=== PATIENT | male | born 1985 | race Two or more races ===

== ENCOUNTER 2018-03-03 08:40 | Emergency (ER) | payer SELFPAY ==
[2018-03-03] MEDS ORDERED: NORMAL SALINE 1000 ML 1,000 ML IV ONE (09:18)
[2018-03-03] MEDS ORDERED: FENTANYL CITRATE INJ/PF 100 MCG/2 ML AMPUL IV ONE (09:18)
[2018-03-03] MEDS ORDERED: KETOROLAC TROMETHAMINE INJ/PF 30 MG/1 ML SDV IV ONE (09:18)
[2018-03-03] MEDS ORDERED: ONDANSETRON HCL INJ/PF 4 MG/2 ML SDV IV ONE ×2 (09:18→10:16)
--- NOTE | 2018-03-03 09:31 | ER Document Report ---
ED Medical Screen (RME) - General Chief Complaint: Abdominal Pain Stated Complaint: ABDOMINAL PAIN Time Seen by Provider: 03/03/18 09:18 Notes: 33 years old male presents today with severe abdominal pain since this morning with nausea and vomiting no diarrhea. No fever chills or other constitutional symptoms. TRAVEL OUTSIDE OF THE [place] 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 Renal/ Medical History: Denies: Hx Peritoneal Dialysis GI Medical History: Reports: Hx Gastroesophageal Reflux Disease Psychiatric Medical History: Reports: Hx Depression Traumatic Medical History: Reports: Hx Traumatic Brain Injury - Immunizations Immunizations up to date: Yes Hx Diphtheria, Pertussis, Tetanus Vaccination: Yes - 2010 Physical Exam - Vital signs Vitals: Temp Pulse Resp BP Pulse Ox 98.5 F 61 14 145/107 H 100 03/03/18 08:47 03/03/18 08:47 03/03/18 08:47 03/03/18 08:47 03/03/18 08:47 Course - Vital Signs Vital signs: Temp Pulse Resp BP Pulse Ox 98.5 F 61 14 145/107 H 100 03/03/18 08:47 03/03/18 08:47 03/03/18 08:47 03/03/18 08:47 03/03/18 08:47
[2018-03-03 09:44] LABS: ABSOLUTE LYMPHOCYTES (AUTO) 1.2 10^3/uL (0.5-4.7); ABSOLUTE MONOCYTES (AUTO) 0.6 10^3/uL (0.1-1.4); ABSOLUTE NEUT (AUTO) 12.6 10^3/uL (1.7-8.2); BASOPHILS % (AUTO) 0.3 % (0-2); EOSINOPHILS % (AUTO) 0.3 % (0-6); HEMATOCRIT 44.1 % (37.9-51.0); HEMOGLOBIN 15.1 g/dL (13.5-17.0); LYMPHOCYTES % (AUTO) 8.5 % (13-45); MEAN CORPUSCULAR HEMOGLOBIN 29.9 pg (27.0-33.4); MEAN CORPUSCULAR HGB CONC 34.3 g/dL (32.0-36.0); MEAN CORPUSCULAR VOLUME 87 fl (80-97); MONOCYTES % (AUTO) 3.9 % (3-13); PLATELET COUNT 344 10^3/uL (150-450); RED BLOOD COUNT 5.06 10^6/uL (4.35-5.55); RED CELL DISTRIBUTION WIDTH 13.4 % (11.5-14.0); TOTAL CELLS COUNTED % (AUTO) 100 %; WHITE BLOOD COUNT 14.5 10^3/uL (4.0-10.5)
[2018-03-03 10:03] LABS: ALANINE AMINOTRANSFERASE 17 U/L (21-72); ALKALINE PHOSPHATASE 71 U/L (38-126); ANION GAP 15 (5-19); ASPARTATE AMINO TRANSFERASE 21 U/L (17-59); BILIRUBIN,DIRECT 0.2 mg/dL (0.0-0.4); BILIRUBIN,TOTAL 1.4 mg/dL (0.2-1.3); BLOOD UREA NITROGEN 16 mg/dL (7-20); CALCIUM 9.8 mg/dL (8.4-10.2); CARBON DIOXIDE 25 mmol/L (22-30); CHLORIDE 102 mmol/L (98-107); GLUCOSE 114 mg/dL (75-110); LIPASE 112.8 U/L (23-300); POTASSIUM 3.7 mmol/L (3.6-5.0); TOTAL PROTEIN 8.7 g/dL (6.3-8.2)
[2018-03-03] MEDS ORDERED: HYDROMORPHONE HCL INJ/PF 2 MG/ML AMPULE IV ONE (10:17)
--- NOTE | 2018-03-03 10:18 | ER Document Report ---
ED General - General Chief Complaint: Abdominal Pain Stated Complaint: ABDOMINAL PAIN Time Seen by Provider: 03/03/18 09:18 Notes: Patient is a 33-year-old male that presents to the emergency department for chief complaints of generalized abdominal pain. The patient states the pain is been going on for approximately 2 days, and has progressively gotten worse over that period of time, he rates the pain as an 8 out of 10 at this time as a aching and occasionally sharp sensation, seems to be worse in the right lower quadrant. He admits to having dysuria as well, no history of kidney stones. He also states he has been having nausea, vomiting and diarrhea over the last 2 days as well. No sick contacts that he is aware of. Denies fevers, chills, night sweats, chest pain, shortness of breath or difficulty breathing. TRAVEL OUTSIDE OF THE [place] 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 Denies recent illness. EENT: Denies eye, ear, throat, or mouth pain or symptoms. Denies nasal or sinus congestion. CARDIOVASCULAR: Denies chest pain. RESPIRATORY: Denies cough, cold, or chest congestion. Denies shortness of breath, difficulty breathing, or wheezing. GASTROINTESTINAL: Positive for abdominal pain, nausea, vomiting and diarrhea denies abdominal pain. GENITOURINARY: Positive for dysuria denies difficulty urinating, painful urination, frequency, or blood in urine. MUSCULOSKELETAL: Denies neck or back pain or joint pain or swelling. SKIN: Denies rash or skin lesions. HEMATOLOGIC : Denies easy bruising or bleeding. LYMPHATIC: Denies swollen, enlarged glands. NEUROLOGICAL: Denies altered mental status or loss of consciousness. Denies headache. Denies weakness or paralysis or loss of use of either side. Denies problems with gait or speech. Denies sensory or motor loss. PSYCHIATRIC: Denies anxiety or stress or depression. ALL OTHER SYSTEMS REVIEWED AND NEGATIVE. Physical Exam - Vital signs Vitals: Temp Pulse Resp BP Pulse Ox 98.5 F 61 14 145/107 H 100 03/03/18 08:46 03/03/18 08:46 03/03/18 08:46 03/03/18 08:46 03/03/18 08:46 - Notes Notes: PHYSICAL EXAMINATION: GENERAL: Uncomfortable, well-nourished and appears to be in pain. HEAD: Atraumatic, normocephalic. EYES: Pupils equal round and reactive to light, extraocular movements intact, sclera anicteric, conjunctiva are normal. ENT: nares patent, oropharynx clear without exudates. Moist mucous membranes. NECK: Normal range of motion, supple without lymphadenopathy LUNGS: Breath sounds clear to auscultation bilaterally and equal. No wheezes rales or rhonchi. HEART: Regular rate and rhythm without murmurs ABDOMEN: Soft, diffusely tender, worse in the right lower quadrant, normoactive bowel sounds. No rigidity guarding, no rebound. No masses appreciated. EXTREMITIES: Normal range of motion, no pitting or edema. No cyanosis. NEUROLOGICAL: No focal neurological deficits. Moves all extremities spontaneously and on command. PSYCH: Normal mood, normal affect. SKIN: Warm, Dry, normal turgor, no rashes or lesions noted. Course - Re-evaluation Re-evalutation: 03/03/18 10:29 Patient seen and examined, vital signs reviewed, patient did appear comfortable on exam, did have particularly tender right lower quadrant, obtain blood work, urinalysis, CT imaging of the abdomen and pelvis, patient treated with IV fluids , analgesics, and antiemetics. Will reevaluate, and discuss results when available. 03/03/18 14:07 Patient reexamined after imaging resulted, and CT demonstrated a nonobstructing renal calculus, otherwise negative, patient was improved after medications, still complaining of cramping, patient dosed with IM Bentyl, will discharge the patient home, with oral Bentyl, and Zofran, and have him follow up with primary care. Patient agreeable to this plan of care, is advised if the symptoms worsen in any way to immediately return to the emergency department. - Vital Signs Vital signs: Temp Pulse Resp BP Pulse Ox 98.6 F 61 14 127/76 H 97 03/03/18 14:27 03/03/18 14:27 03/03/18 08:47 03/03/18 14:27 03/03/18 14:27 - Laboratory Result Diagrams: 03/03/18 09:32 03/03/18 09:32 Laboratory results interpreted by me: 03/03/18 03/03/18 03/03/18 09:32 09:32 12:25 WBC 14.5 H Seg Neutrophils % 87.0 H Lymphocytes % 8.5 L Absolute Neutrophils 12.6 H Glucose 114 H Total Bilirubin 1.4 H ALT 17 L Total Protein 8.7 H Urine Ketones 20 H Urine Blood SMALL H Discharge - Discharge Condition: Good Disposition: HOME, SELF-CARE Instructions: Abdominal Pain ([facility]), Antispasmodics ([facility]) Additional Instructions: Please take medications as prescribed, please continue to maintain hydration by drinking sports drinks, or water, take antinausea medication as needed, please follow-up with your primary care physician, please return to the emergency department if your symptoms worsen in any way. Prescriptions: Dicyclomine HCl [Bentyl 20 mg Tablet] 20 mg PO QID PRN #20 tablet PRN Reason: Abdominal Cramping Ondansetron [Zofran Odt 4 mg Tablet] 1 tab PO Q4H PRN #15 tab.rapdis PRN Reason: For Nausea/Vomiting Referrals: [facility] [Provider Group] - Follow up as needed
[2018-03-03 13:10] LABS: AMORPHOUS SEDIMENT,URINE TRACE /HPF; APPEARANCE,URINE CLOUDY; BILIRUBIN,URINE NEGATIVE (NEGATIVE); COLOR,URINE YELLOW; GLUCOSE, URINE NEGATIVE (NEGATIVE); KETONES,URINE 20 mg/dL (NEGATIVE); LEUKOCYTE ESTERASE,URINE NEGATIVE (NEGATIVE); NITRITE,URINE NEGATIVE (NEGATIVE); PROTEIN,URINE NEGATIVE (NEGATIVE); URINE SPECIFIC GRAVITY 1.016; UROBILINOGEN,URINE NEGATIVE mg/dL (<2.0)
--- NOTE | 2018-03-03 13:25 | RADIOLOGY REPORT (SQ) ---
EXAM DESCRIPTION: CT ABD/PELVIS WITH IV ORAL COMPLETED DATE/TIME: 03/03/2018 1:11 pm REASON FOR STUDY: rlq abdominal pain COMPARISON: 16. TECHNIQUE: CT scan of the abdomen and pelvis performed using helical scanning technique with dynamic intravenous contrast injection. No oral contrast. Images reviewed with lung, soft tissue, and bone windows. Reconstructed coronal and sagittal MPR images reviewed. Delayed images for evaluation of the urinary system also acquired. All images stored on PACS. All CT scanners at this facility use dose modulation, iterative reconstruction, and/or weight based d osing when appropriate to reduce radiation dose to as low as reasonably achievable (ALARA). [facility]: Dose Right [facility]: CareDose [facility]: Dose Right [facility]: Teradose 4D [facility]: [employer] CONTRAST TYPE AND DOSE: contrast/concentration: Isovue 350.00 mg/ml; Total Contrast Delivered: 84.0 ml; Total Saline Delivered: 50.5 ml RENAL FUNCTION: BUN 16 creatinine 0.94. RADIATION DOSE: CT Rad equipment meets quality standard of care and radiation dose reduction techniq ues were employed. CTDIvol: 5.4 - 7.0 mGy. DLP: 670 mGy-cm.. LIMITATIONS: None. FINDINGS: LOWER CHEST: No significant findings. No nodules or infiltrates. LIVER: Normal size. No masses. No dilated ducts. SPLEEN: Normal size. No focal lesions. PANCREAS: No masses. No significant calcifications. No adjacent inflammation or peripancreatic fluid collections. Pancreatic duct not dilated. GALLBLADDER: No identified stones by CT criteria. No inflammatory changes to suggest cholecystitis. ADRENAL GLANDS: No significant masses or asymmetry. RIGHT KIDNEY AND URETER: No solid masses. No significant calcifications. No hydronephrosis or hyd roureter. LEFT KIDNEY AND URETER: No solid masses. 6 mm lower pole calyceal calculus. No hydronephrosis or hydroureter. AORTA AND VESSELS: No aneurysm. No dissection. Renal arteries, SMA, celiac without stenosis. RETROPERITONEUM: No retroperitoneal adenopathy, hemorrhage or masses. BOWEL AND PERITONEAL CAVITY: No masses or inflammatory changes. No free fluid or peritoneal masses. APPENDIX: Normal. PELVIS: No mass. No free fluid. Normal bladder. ABDOMINAL WALL: No masses. No hernias. BONES: No significant or acute findings. OTHER: No other significant finding. IMPRESSION: 1. 6 MM NONOBSTRUCTING CALYCEAL CALCULUS IN THE LOWER POLE OF THE LEFT KIDNEY. 2. NO OTHER SIGNIFICANT OR ACUTE FINDING IN THE ABDOMEN OR PELVIS ON CT SCAN WITH IV CONTRAST. [place] L APPENDIX. TECHNICAL DOCUMENTATION: JOB ID: [id number] Quality ID # [id number]: Final reports with documentation of one or more dose reduction techniques (e.g., Au tomated exposure control, adjustment of the mA and/or kV according to patient size, use of iterative reconstruction technique) 2010 [employer]- All Rights Reserved Reading location - IP/workstation name: [email or web address]
[2018-03-03] MEDS ORDERED: DICYCLOMINE HCL INJ 20 MG/2 ML AMPULE IM STA (13:41)
[2018-03-03 14:30] VITALS: BP 127/76
== END 2018-03-03 14:44 | disposition home or self-care (01) ==
LOC: ER 08:40
DX: K52.9 Noninfective gastroenteritis and colitis, unspecified (principal); N20.0 Calculus of kidney; R10.84 Generalized abdominal pain; R30.0 Dysuria; R11.2 Nausea with vomiting, unspecified
CPT/HCPCS: 96376; 99284; 96372; 96361; 96374; 96375; 36415; 83690; 85025; 80053; 81001; 74177; J0500; J3010; J1885; J1170; J2405; J7030

== ENCOUNTER 2018-04-05 03:18 | Emergency (ER) | payer SELFPAY ==
[2018-04-05] MEDS ORDERED: PROMETHAZINE HCL INJ 25 MG/1 ML VIAL IV ONE (04:29)
[2018-04-05] MEDS ORDERED: HYDROMORPHONE HCL INJ/PF 2 MG/ML AMPULE IV ONE ×2 (04:29→08:20)
--- NOTE | 2018-04-05 04:31 | ER Document Report ---
Doctor's Note Notes: 04/05/18 04:30 I performed a quick triage evaluation the patient. Patient is a 33-year-old male who presents with complaint of vomiting and abdominal pain. Patient says the pain is diffuse across his abdomen into his back. He says he feels as if he has a kidney stone urinary says he is never had a kidney stone before. He was seen here March 03 of this year. At that time a CT scan which showed an intrarenal stone but no intraureteral stone or obstruction. He denies any fevers. Some nausea. Some vomiting. No diarrhea. No blood in his stool. No blood in his emesis. He says his urine has been darker than usual. No other complaints at this time. Denies any alcohol use. On exam his abdomen is soft and slightly tender to palpation diffusely. There is really no focality to his tenderness. He is in a lot of pain. I have ordered pain medicine and nausea medicine. I have ordered blood work and UA. Dictation of this chart was performed using voice recognition software; therefore, there may be some unintended grammatical errors. 04/05/18 04:31
[2018-04-05 05:04] LABS: ABSOLUTE LYMPHOCYTES (AUTO) 0.8 10^3/uL (0.5-4.7); ABSOLUTE MONOCYTES (AUTO) 0.3 10^3/uL (0.1-1.4); BASOPHILS % (AUTO) 0.2 % (0-2); HEMATOCRIT 39.4 % (37.9-51.0); HEMOGLOBIN 13.9 g/dL (13.5-17.0); LYMPHOCYTES % (AUTO) 7.5 % (13-45); MEAN CORPUSCULAR HGB CONC 35.4 g/dL (32.0-36.0); MEAN CORPUSCULAR VOLUME 85 fl (80-97); MONOCYTES % (AUTO) 2.2 % (3-13); PLATELET COUNT 398 10^3/uL (150-450); RED BLOOD COUNT 4.64 10^6/uL (4.35-5.55); RED CELL DISTRIBUTION WIDTH 13.1 % (11.5-14.0); SEGMENTED NEUTROPHILS % (AUTO) 90.1 % (42-78); TOTAL CELLS COUNTED % (AUTO) 100 %; WHITE BLOOD COUNT 11.1 10^3/uL (4.0-10.5)
[2018-04-05 05:35] LABS: ALANINE AMINOTRANSFERASE 23 U/L (21-72); ALBUMIN 5.2 g/dL (3.5-5.0); ALKALINE PHOSPHATASE 78 U/L (38-126); ANION GAP 15 (5-19); ASPARTATE AMINO TRANSFERASE 44 U/L (17-59); BILIRUBIN,DIRECT 0.7 mg/dL (0.0-0.4); BILIRUBIN,TOTAL 1.8 mg/dL (0.2-1.3); BLOOD UREA NITROGEN 17 mg/dL (7-20); CALCIUM 10.3 mg/dL (8.4-10.2); CARBON DIOXIDE 24 mmol/L (22-30); CHLORIDE 103 mmol/L (98-107); GLUCOSE 133 mg/dL (75-110); LIPASE 98.6 U/L (23-300); POTASSIUM 3.7 mmol/L (3.6-5.0); SODIUM 141.8 mmol/L (137-145); TOTAL PROTEIN 9.3 g/dL (6.3-8.2)
[2018-04-05 07:27] LABS: APPEARANCE,URINE SLIGHTLY-CLOUDY; BILIRUBIN,URINE NEGATIVE (NEGATIVE); CALCIUM OXALATE CRYSTALS,URINE FEW /HPF; COLOR,URINE AMBER; GLUCOSE, URINE NEGATIVE (NEGATIVE); KETONES,URINE 20 mg/dL (NEGATIVE); LEUKOCYTE ESTERASE,URINE NEGATIVE (NEGATIVE); NITRITE,URINE NEGATIVE (NEGATIVE); PROTEIN,URINE 30 mg/dL (NEGATIVE); URINE SPECIFIC GRAVITY 1.029
[2018-04-05] MEDS ORDERED: ONDANSETRON HCL INJ/PF 4 MG/2 ML SDV IV ONE ×2 (08:20→11:58)
[2018-04-05] MEDS ORDERED: NORMAL SALINE 1000 ML 1,000 ML IV ONE ×2 (10:52→12:17)
--- NOTE | 2018-04-05 12:16 | RADIOLOGY REPORT (SQ) ---
EXAM DESCRIPTION: CT ABD/PELVIS WITH IV ORAL COMPLETED DATE/TIME: 04/05/2018 11:54 am REASON FOR STUDY: abd pain, leukocytosis COMPARISON: CT abdomen pelvis 03/03/2018, 05/18/2016, 06/05/2009 TECHNIQUE: CT scan of the abdomen and pelvis performed using helical scanning technique with dynamic intravenous contrast injection. Patient drank oral contrast. Images reviewed with lung, soft tissue , and bone windows. Reconstructed coronal and sagittal MPR images reviewed. Delayed images for evalua tion of the urinary system also acquired. All images stored on PACS. All CT scanners at this facility use dose modulation, iterative reconstruction, and/or weight based d osing when appropriate to reduce radiation dose to as low as reasonably achievable (ALARA). [facility]: Dose Right [facility]: CareDose [facility]: Dose Right [facility]: Teradose 4D [facility]: [employer] CONTRAST TYPE AND DOSE: contrast/concentration: Isovue 350.00 mg/ml; Total Contrast Delivered: 88.0 ml; Total Saline Delivered: 55.0 ml RENAL FUNCTION: GFR > 60. RADIATION DOSE: CT Rad equipment meets quality standard of care and radiation dose reduction techniq ues were employed. CTDIvol: 6.4 - 8.8 mGy. DLP: 860 mGy-cm.. LIMITATIONS: None. FINDINGS: LOWER CHEST: No significant findings. No nodules or infiltrates. LIVER: Normal size. No masses. No dilated ducts. SPLEEN: Normal size. No focal lesions. PANCREAS: No masses. No significant calcifications. No adjacent inflammation or peripancreatic fluid collections. Pancreatic duct not dilated. GALLBLADDER: No identified stones by CT criteria. No inflammatory changes to suggest cholecystitis. ADRENAL GLANDS: No significant masses or asymmetry. RIGHT KIDNEY AND URETER: No solid masses. No significant calcifications. No hydronephrosis or hyd roureter. LEFT KIDNEY AND URETER: No solid masses. 10 mm intrarenal nonobstructive stone, left lower pole kid tio 920 Hounsfield units. No hydronephrosis or hydroureter. AORTA AND VESSELS: No aneurysm. No dissection. Renal arteries, SMA, celiac without stenosis. RETROPERITONEUM: No retroperitoneal adenopathy, hemorrhage or masses. BOWEL AND PERITONEAL CAVITY: Patient drank oral contrast. No CT evidence of bowel obstruction or markell e intraperitoneal air or fluid. APPENDIX: Normal. PELVIS: No mass. No free fluid. Normal bladder. ABDOMINAL WALL: No masses. No hernias. BONES: No significant or acute findings. OTHER: No other significant finding. IMPRESSION: No CT evidence of bowel obstruction, appendicitis, or obstructive urinary calculi TECHNICAL DOCUMENTATION: JOB ID: [id number] Quality ID # [id number]: Final reports with documentation of one or more dose reduction techniques (e.g., Au tomated exposure control, adjustment of the mA and/or kV according to patient size, use of iterative reconstruction technique) 2010 [employer]- All Rights Reserved Reading location - IP/workstation name: [email or web address]
--- NOTE | 2018-04-05 13:49 | ER Document Report ---
ED GI/ - General Chief Complaint: Abdominal Pain Stated Complaint: ABDOMINAL PAIN Time Seen by Provider: 04/05/18 04:25 Mode of Arrival: Ambulatory Information source: Patient Notes: Patient is a 33-year-old male who presents with chief complaint of abdominal pain that started yesterday. Patient reports the pain is across his entire abdomen. Patient has associated vomiting and diarrhea. Patient also reports he started having a headache last night at 2100. Patient denies any fever or recent illness. TRAVEL OUTSIDE OF THE [place] 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 Renal/ Medical History: Denies: Hx Peritoneal Dialysis GI Medical History: Reports: Hx Gastroesophageal Reflux Disease Psychiatric Medical History: Reports: Hx Depression Traumatic Medical History: Reports: Hx Traumatic Brain Injury - Immunizations Immunizations up to date: Yes Hx Diphtheria, Pertussis, Tetanus Vaccination: Yes - 2010 Review of Systems - Review of Systems Gastrointestinal: Abdominal pain, Diarrhea, Nausea, Vomiting Neurological/Psychological: Headaches -: Yes All other systems reviewed and negative Physical Exam - Vital signs Vitals: Temp Pulse Resp BP Pulse Ox 98 F 102 H 22 H 148/100 H 99 04/05/18 03:25 04/05/18 03:25 04/05/18 03:25 04/05/18 03:25 04/05/18 03:25 - Notes Notes: PHYSICAL EXAMINATION: GENERAL: Well-appearing, well-nourished and in no acute distress. HEAD: Atraumatic, normocephalic. EYES: Pupils equal round and reactive to light, extraocular movements intact, sclera anicteric, conjunctiva are normal. ENT: Nares patent, oropharynx clear without exudates. Moist mucous membranes. NECK: Normal range of motion, supple without lymphadenopathy LUNGS: Breath sounds clear to auscultation bilaterally and equal. No wheezes rales or rhonchi. HEART: Regular rate and rhythm without murmurs ABDOMEN: Soft, nondistended abdomen, generalized tenderness to palpation. No guarding, no rebound. No masses appreciated. Musculoskeletal: Normal range of motion, no pitting or edema. No cyanosis. NEUROLOGICAL: Cranial nerves grossly intact. Normal speech, normal gait. Normal sensory, motor exams PSYCH: Normal mood, normal affect. SKIN: Warm, Dry, normal turgor, no rashes or lesions noted. Course - Re-evaluation Re-evalutation: CBC with mildly elevated white blood count 11.1. Neutrophils 90.1. CMP with mildly elevated bilirubin otherwise unremarkable, lipase 98.6. Urinalysis is completely unremarkable. Due to patient's presentation and location of his pain I will send the patient for CT abdomen pelvis to rule out appendicitis. Patient medicated for pain and nausea. CT abdomen pelvis is negative for any acute findings. Patient now resting comfortably after being medicated several times. We will continue to give patient IV fluids and plan to discharge home in stable condition with strict ED return precautions. - Vital Signs Vital signs: Temp Pulse Resp BP Pulse Ox 98.3 F 55 L 18 117/78 98 04/05/18 14:13 04/05/18 14:13 04/05/18 14:13 04/05/18 14:13 04/05/18 14:13 - Laboratory Result Diagrams: 04/05/18 04:43 04/05/18 04:43 Laboratory results interpreted by me: 04/05/18 04/05/18 04/05/18 04:43 04:43 07:12 WBC 11.1 H Seg Neutrophils % 90.1 H Lymphocytes % 7.5 L Monocytes % 2.2 L Absolute Neutrophils 10.0 H Glucose 133 H Calcium 10.3 H Total Bilirubin 1.8 H Direct Bilirubin 0.7 H Total Protein 9.3 H Albumin 5.2 H Urine Protein 30 H Urine Ketones 20 H Urine Urobilinogen 2.0 H Discharge - Discharge Clinical Impression: Abdominal pain Qualifiers: Abdominal location: generalized Qualified Code(s): R10.84 - Generalized abdominal pain Condition: Stable Disposition: HOME, SELF-CARE Additional Instructions: Abdominal Pain There are many causes of abdominal pain. Pain can mean a serious problem requiring surgery (such as appendicitis). It can also be an innocent problem that goes away on its own (such as a viral infection). Often, time must pass to determine the cause of pain. The physician does not feel that hospitalization is necessary, at present. Things may change within the next 24 hours. Call the doctor or come back for re- examination if any problems occur, such as: (1) Pain that becomes more severe, steady, or becomes concentrated in one specific area. Also, pain that is more severe with movement or coughing. (2) Vomiting that persists or becomes more frequent. (3) Blood in the vomitus, urine, or bowel movements. Blood in the stool may have a tarry or black appearance. (4) Shaking chills or fever greater than 100 degrees F. (5) The abdomen becomes more distended or swollen. (6) Bowel movements cease. (7) Failure to improve as expected. Your CT scan today was negative for any acute findings. I will give you Zofran for your nausea as well as Phenergan suppositories. If you are unable to hold down the Zofran please use the Phenergan, you can take 1 every 6 hours. Take Tylenol every 4 hours as needed for pain. Prescriptions: Ondansetron [Zofran Odt 4 mg Tablet] 1 - 2 tab PO Q4H PRN #15 tab.rapdis PRN Reason: For Nausea/Vomiting Promethazine HCl [Phenergan] 25 mg RC Q6H PRN #12 supp.rect PRN Reason: Sucralfate [Carafate 1 gm Tablet] 1 gm PO ACHS #40 tablet
[2018-04-05] MEDS ORDERED: ONDANSETRON ODT 4 MG TAB (6 TAB/ER DISP) PO PRN (13:54)
[2018-04-05 14:13] VITALS: BP 117/78
== END 2018-04-05 14:20 | disposition home or self-care (01) ==
LOC: ER 03:18
DX: R11.2 Nausea with vomiting, unspecified (principal); R10.84 Generalized abdominal pain; R19.7 Diarrhea, unspecified; Z87.820 Personal history of traumatic brain injury
CPT/HCPCS: 96376; 99284; 96361; 96374; 96375; 36415; 83690; 85025; 80053; 81001; 74177; J1170; J2550; J2405

== ENCOUNTER 2018-05-02 22:57 | Emergency (ER) | payer SELFPAY ==
[2018-05-03] MEDS ORDERED: METOCLOPRAMIDE HCL INJ/PF 10 MG/2 ML SDV IV ONE (00:14)
[2018-05-03] MEDS ORDERED: NORMAL SALINE 1000 ML 1,000 ML IV ONE (00:14)
--- NOTE | 2018-05-03 00:16 | ER Document Report ---
ED Medical Screen (RME) - General Chief Complaint: Abdominal Pain Stated Complaint: ABDOMINAL PAIN Time Seen by Provider: 05/03/18 00:14 Notes: 33-year-old male chief complaint of vomiting, sharp mid abdominal pain, and some loose stools. Symptoms started yesterday, seen in [place] and placed on Zofran and Lortab. States he continues to vomit today. No fever. States he was told he had a kidney stone but he does not feel like he is passing one. Denies any other medical history including surgeries. TRAVEL OUTSIDE OF THE [place] IN LAST 30 DAYS: No - Related Data Allergies/Adverse Reactions: No Known Allergies Allergy (Verified 03/03/18 08:41) Past Medical History Neurological Medical History: Reports: Hx Seizures - from head injury Renal/ Medical History: Denies: Hx Peritoneal Dialysis GI Medical History: Reports: Hx Gastroesophageal Reflux Disease Psychiatric Medical History: Reports: Hx Depression Traumatic Medical History: Reports: Hx Traumatic Brain Injury - Immunizations Immunizations up to date: Yes Hx Diphtheria, Pertussis, Tetanus Vaccination: Yes - 2010 Physical Exam - Vital signs Vitals: Temp Pulse Resp BP Pulse Ox 97.9 F 78 18 169/95 H 100 05/02/18 22:57 05/02/18 22:57 05/02/18 22:57 05/02/18 22:57 05/02/18 22:57 - General General appearance: Alert, Anxious - Abdominal Tenderness: Tender - Tender all of the abdomen generally, no overt specific guarding, no rigidity or rebound tenderness Course - Vital Signs Vital signs: Temp Pulse Resp BP Pulse Ox 97.9 F 78 18 169/95 H 100 05/02/18 22:57 05/02/18 22:57 05/02/18 22:57 05/02/18 22:57 05/02/18 22:57
[2018-05-03] MEDS ORDERED: DICYCLOMINE HCL INJ 20 MG/2 ML AMPULE IM ONE (01:15)
--- NOTE | 2018-05-03 01:15 | ER Document Report ---
ED General - General Mode of Arrival: Ambulatory Information source: Patient TRAVEL OUTSIDE OF THE [place] IN LAST 30 DAYS: No <SARAHY SHULTZ - Last Filed: 05/03/18 03:18> <SAVANA GIRON - Last Filed: 05/03/18 03:47> - General Chief Complaint: Abdominal Pain Stated Complaint: ABDOMINAL PAIN Time Seen by Provider: 05/03/18 00:14 Notes: Patient is a 33 year old male presenting to the emergency department complaining of abdominal pain with associated symptoms of nausea, vomiting, diarrhea, diaphoresis and chills onset 2 days ago. Patient describes his abdominal pain as a waxing and waning cramping located diffusely across his entire abdomen. Patient states he was seen at a hospital in [place] yesterday and was given fluids, Zofran and a medicine for his kidney stone and sent home. Patient does not know any specific information pertaining his kidney stone but states he was told he did not have an infection. Patient denies any hematuria, blood in stool, or fevers. 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 GI Medical History: Reports: Hx Gastroesophageal Reflux Disease Psychiatric Medical History: Reports: Hx Depression Traumatic Medical History: Reports: Hx Traumatic Brain Injury - Immunizations Immunizations up to date: Yes Hx Diphtheria, Pertussis, Tetanus Vaccination: Yes - 2010 <SARAHY SHULTZ - Last Filed: 05/03/18 03:18> Review of Systems - Review of Systems Constitutional: No symptoms reported EENT: No symptoms reported Cardiovascular: No symptoms reported Respiratory: No symptoms reported Gastrointestinal: See HPI, Abdominal pain, Nausea, Vomiting Genitourinary: No symptoms reported Male Genitourinary: No symptoms reported Musculoskeletal: No symptoms reported Skin: No symptoms reported Hematologic/Lymphatic: No symptoms reported Neurological/Psychological: No symptoms reported -: Yes All other systems reviewed and negative <SARAHY SHULTZ - Last Filed: 05/03/18 03:18> Physical Exam <SARAHY SHULTZ - Last Filed: 05/03/18 03:18> <SAVANA GIRON - Last Filed: 05/03/18 03:47> - Vital signs Vitals: Temp Pulse Resp BP Pulse Ox 97.9 F 78 18 169/95 H 100 05/02/18 22:57 05/02/18 22:57 05/02/18 22:57 05/02/18 22:57 05/02/18 22:57 - Notes Notes: GENERAL: Alert, appears uncomfortable. HEAD: Normocephalic, atraumatic. EYES: Pupils equal, round, and reactive to light. Extraocular movements intact. ENT: Oral mucosa moist, tongue midline. NECK: Full range of motion. Supple. Trachea midline. LUNGS: Clear to auscultation bilaterally, no wheezes, rales, or rhonchi. No respiratory distress. HEART: Regular rate and rhythm. No murmurs, gallops, or rubs. ABDOMEN: Soft, Tender to palpation to the RLQ, LLQ and suprapubic, and epigastric region. Non-distended. Bowel sounds present in all 4 quadrants. EXTREMITIES: Moves all 4 extremities spontaneously. NEUROLOGICAL: Alert and oriented x3. Normal speech. PSYCH: Normal affect, normal mood. SKIN: Warm, dry, normal turgor. No rashes or lesions noted. (SARAHY SHULTZ) Course - Laboratory Result Diagrams: 05/03/18 01:10 05/03/18 01:10 <LEXIISARAHY ESPINOZA - Last Filed: 05/03/18 03:18> - Laboratory Result Diagrams: 05/03/18 01:10 05/03/18 01:10 <SAVANA GIRON - Last Filed: 05/03/18 03:47> - Re-evaluation Re-evalutation: 05/03/18 02:53 CBC grossly unremarkable, only mild anemia with a hemoglobin 13.0, no leukocytosis, CMP shows slightly elevated total bilirubin at 1.7, looking back he has had this on multiple other visits to the emergency department, direct bilirubin is normal, lipase is normal. Abdominal examination shows diffuse tenderness and is completely nonfocal. No indication for imaging at this time to look for appendicitis or. I did review his old CAT scan from his last visit to the emergency department, patient states he was diagnosed with a kidney stone at that time. Reviewing the CAT scan shows that he did have a 10 mm stone in his left kidney but there is no evidence of ureteral stone. This would not be causing his pain at this time. I did recheck the patient after he received his Reglan and his Bentyl, patient is now sleeping, stretched out on the bed, appears to feel much better, when I woke him up he stated that he would provide a urine specimen for me now. 05/03/18 03:37 Urinalysis shows 20 ketones, pH is specific gravity is 1.008, no signs of infection or blood, only 1 RBC not consistent with a kidney stone. Reviewed old CT scans, shows a left-sided inferior pole kidney stone, no evidence of ureteral stone, in early April it was 10 mm, in February was 6 mm. This should not be causing any pain. Patient was able to urinate without difficulty, feeling much better, no further vomiting or diarrhea, patient will be discharged home with prescriptions for Reglan, Zofran and Bentyl. Patient has also been instructed on use of Imodium [id number]. 05/03/18 03:45 (SAVANA GIRON) - Vital Signs Vital signs: Temp Pulse Resp BP Pulse Ox 97.9 F 78 18 169/95 H 100 05/02/18 22:57 05/02/18 22:57 05/02/18 22:57 05/02/18 22:57 05/02/18 22:57 - Laboratory Laboratory results interpreted by me: 05/03/18 05/03/18 05/03/18 01:10 01:10 02:55 Hgb 13.0 L Seg Neutrophils % 86.9 H Lymphocytes % 9.4 L Absolute Neutrophils 9.0 H Total Bilirubin 1.7 H Urine Ketones 20 H Discharge <SARAHY SHULTZ - Last Filed: 05/03/18 03:18> <SAVANA GIRON - Last Filed: 05/03/18 03:47> - Discharge Clinical Impression: Nausea vomiting and diarrhea Condition: Stable Disposition: HOME, SELF-CARE Additional Instructions: Please use the Zofran in the Reglan for nausea and vomiting, you may use Imodium as directed counter for diarrhea. I have prescribed you Bentyl for your abdominal cramping. Please use it as prescribed. Should your pain worsen, should you continue vomiting despite taking the Zofran and the Reglan or develop any new or concerning symptoms please return to the emergency department. I did review your CAT scans, you have a kidney stone, it is still in your kidney. It is not a ureteral stone, this means it is not causing pain or obstruction. You do not need to be taking pain medication such as Lortab for a 10 mm stone that is in your left kidney and not moving anywhere. Prescriptions: Ondansetron [Zofran Odt 4 mg Tablet] 1 - 2 tab PO Q4HP PRN #10 tab.rapdis PRN Reason: Dicyclomine HCl [Bentyl 20 mg Tablet] 20 mg PO QID #40 tablet Metoclopramide HCl [Reglan 10 mg Tablet] 1 - 2 tab PO ASDIR PRN #25 tablet PRN Reason: Forms: Parent Work Note, Return to Work Referrals: NANCY LEE MD [COMMUNITY BASED STAFF] - Follow up as needed Scribe Attestation: 05/03/18 03:47 I personally performed the services described in the documentation, reviewed and edited the documentation which was dictated to the scribe in my presence, and it accurately records my words and actions. (SAVANA GIRON) Scribe Documentation - Scribe Written by Aliza:: Aliza Foss, 05/03/2018 01:17 acting as scribe for :: Elisa <SARAHY SHULTZ - Last Filed: 05/03/18 03:18>
[2018-05-03 01:26] LABS: ABSOLUTE MONOCYTES (AUTO) 0.3 10^3/uL (0.1-1.4); BASOPHILS % (AUTO) 0.3 % (0-2); LYMPHOCYTES % (AUTO) 9.4 % (13-45); MEAN CORPUSCULAR HEMOGLOBIN 29.4 pg (27.0-33.4); MEAN CORPUSCULAR HGB CONC 34.2 g/dL (32.0-36.0); MEAN CORPUSCULAR VOLUME 86 fl (80-97); MONOCYTES % (AUTO) 3.4 % (3-13); PLATELET COUNT 345 10^3/uL (150-450); RED BLOOD COUNT 4.43 10^6/uL (4.35-5.55); RED CELL DISTRIBUTION WIDTH 13.6 % (11.5-14.0); SEGMENTED NEUTROPHILS % (AUTO) 86.9 % (42-78); TOTAL CELLS COUNTED % (AUTO) 100 %; WHITE BLOOD COUNT 10.4 10^3/uL (4.0-10.5)
[2018-05-03 01:38] LABS: ALANINE AMINOTRANSFERASE 24 U/L (21-72); ALBUMIN 4.8 g/dL (3.5-5.0); ALKALINE PHOSPHATASE 68 U/L (38-126); ANION GAP 12 (5-19); ASPARTATE AMINO TRANSFERASE 52 U/L (17-59); BILIRUBIN,DIRECT 0.3 mg/dL (0.0-0.4); BILIRUBIN,TOTAL 1.7 mg/dL (0.2-1.3); BLOOD UREA NITROGEN 18 mg/dL (7-20); CALCIUM 9.3 mg/dL (8.4-10.2); CARBON DIOXIDE 25 mmol/L (22-30); CHLORIDE 101 mmol/L (98-107); GLUCOSE 106 mg/dL (75-110); LIPASE 93.8 U/L (23-300); POTASSIUM 3.9 mmol/L (3.6-5.0); SODIUM 138.4 mmol/L (137-145); TOTAL PROTEIN 8.1 g/dL (6.3-8.2)
[2018-05-03 03:12] LABS: APPEARANCE,URINE CLEAR; BILIRUBIN,URINE NEGATIVE (NEGATIVE); COLOR,URINE STRAW; GLUCOSE, URINE NEGATIVE (NEGATIVE); KETONES,URINE 20 mg/dL (NEGATIVE); LEUKOCYTE ESTERASE,URINE NEGATIVE (NEGATIVE); NITRITE,URINE NEGATIVE (NEGATIVE); PROTEIN,URINE NEGATIVE (NEGATIVE); URINE SPECIFIC GRAVITY 1.008; UROBILINOGEN,URINE NEGATIVE mg/dL (<2.0)
[2018-05-03] MEDS ORDERED: ONDANSETRON ODT 4 MG TAB (6 TAB/ER DISP) PO PRN (03:46)
[2018-05-03 04:03] VITALS: BP 145/78
== END 2018-05-03 04:07 | disposition home or self-care (01) ==
LOC: ER 22:57
DX: R11.2 Nausea with vomiting, unspecified (principal); R19.7 Diarrhea, unspecified; N20.0 Calculus of kidney; R61 Generalized hyperhidrosis; R68.83 Chills (without fever); R10.84 Generalized abdominal pain; F17.200 Nicotine dependence, unspecified, uncomplicated; Z87.19 Personal history of other diseases of the digestive system; D64.9 Anemia, unspecified
CPT/HCPCS: 99284; 96372; 96361; 96374; 36415; 83690; 85025; 80053; 81001; J0500; J2765; J7030

== ENCOUNTER 2019-03-11 11:22 | Emergency (ER) | payer SELFPAY ==
--- NOTE | 2019-03-11 11:58 | ER Document Report ---
ED GI/ - General Chief Complaint: Testicular Pain Stated Complaint: GROIN PAIN Time Seen by Provider: 03/11/19 11:47 Notes: Patient complains of pain in his left testicle for about the past week. Says this got worse in the last day or 2. Does not feel that it swollen. Does not recall any kind of unusual activity or injury to that area. He started having the pain about a week ago and shortly after the pain began, he did have sexual relations with his girlfriend. Nothing unusual about that activity. Has not had any drip or discharge from the urethra. Not having any fevers. Was nauseated a couple of days ago but not vomiting. Some urine hesitancy, but no other symptoms of UTI. TRAVEL OUTSIDE OF THE [place] IN LAST 30 DAYS: No - Related Data Allergies/Adverse Reactions: No Known Allergies Allergy (Verified 03/03/18 08:41) Past Medical History - Social History Smoking Status: Never Smoker Frequency of alcohol use: None Drug Abuse: None Family History: Reviewed & Not Pertinent, Arthritis, Hypertension Patient has suicidal ideation: No Patient has homicidal ideation: No Neurological Medical History: Reports: Hx Seizures - from head injury GI Medical History: Reports: Hx Gastroesophageal Reflux Disease Psychiatric Medical History: Reports: Hx Depression Traumatic Medical History: Reports: Hx Traumatic Brain Injury - Immunizations Immunizations up to date: Yes Hx Diphtheria, Pertussis, Tetanus Vaccination: Yes - 2010 Review of Systems - Review of Systems Notes: CONSTITUTIONAL : Denies fever. CARDIOVASCULAR: Denies chest pain. RESPIRATORY: Denies cough, chest congestion, or shortness of breath. GASTROINTESTINAL: Denies abdominal pain or nausea, vomiting, or diarrhea. GENITOURINARY: See HPI. Physical Exam - Vital signs Vitals: Temp Pulse Resp BP Pulse Ox 97.6 F 73 18 103/58 L 99 03/11/19 11:25 03/11/19 11:25 03/11/19 11:25 03/11/19 11:25 03/11/19 11:25 Interpretation: Normal Notes: PHYSICAL EXAMINATION: GENERAL: Well-appearing, no acute distress. HEAD: Atraumatic, normocephalic. NECK: Normal range of motion, supple. LUNGS: Breath sounds clear and equal bilaterally. HEART: Regular rate and rhythm without murmurs heard. ABDOMEN: Soft, nontender. No guarding or rebound or masses felt. Genitourinary: Patient points to the area superior to the testicle itself as the point of tenderness. I do not feel any lumps or masses there. His testicle actually is not tender anywhere, but in these areas of tubular structures at the superior pole of the testicle. No swelling observed. Course - Vital Signs Vital signs: Temp Pulse Resp BP Pulse Ox 97.6 F 73 18 103/58 L 99 03/11/19 11:25 03/11/19 11:25 03/11/19 11:25 03/11/19 11:25 03/11/19 11:25 - Laboratory Laboratory results interpreted by me: 03/11/19 12:01 Urine Blood SMALL H - Diagnostic Test Radiology reviewed: Image reviewed, Reports reviewed - Ultrasound of the scrotum was normal. Normal blood flow into both testicles. No evidence of epididymitis, varicocele, etc. Discharge - Discharge Clinical Impression: Testicular pain, left Condition: Stable Disposition: HOME, SELF-CARE Additional Instructions: Testicular Pain Sometimes we can't prove the exact cause of testicle pain. Pain in the testicle can be caused by many different problems, including viral infections of the testicle, urinary tract infection, kidney stones, inflammation of the epididymis (the sac behind the testicle), hernia, dilated veins in the scrotum, or subtle injury. The most serious causes of testicular pain are tumor or twisting of the testicle. An ultrasound exam often shows what's wrong. When the initial testing doesn't show a cause for the pain, we usually refer to a urologist. Rest. Gentle warmth may help with symptoms. It's usually helpful to wear underwear that gives good support to the testicles ("briefs" instead of "boxers"). Call the doctor or return if there is sudden worsening of pain, fever, vomiting, testicle swelling, or discoloration of the scrotum. NORMAL EXAM AND WORKUP: At this time, your examination and workup show no significant abnormality. No significant abnormal physical findings were noted. All laboratory, EKG, and imaging (x-ray, CT scans, ultrasound) studies that were ordered show no significant abnormality. Although your examination and all studies that were ordered showed no significant abnormal finding, there are no examinations and no studies that are 100% accurate. There is always the possibility that some abnormality could exist and not be detected with physical examination or within the limits and capabilities of laboratory and other studies. You should return or follow up as you were instructed on your visit today for further evaluation if your symptoms do not resolve. Even though your urinalysis and ultrasound were normal without any significant findings, going to put you on an antibiotic as a precaution against a possible infection that was not picked up by our investigation. Take this medication until it is finished. Doxycycline Doxycycline (Vibramycin, Doryx) is an antibiotic of the tetracycline family. This type of drug is useful for infections of the respiratory tract and genital tract, and is sometimes used for intestinal infections. Unlike most tetracyclines, doxycycline can be taken with food. It is longer acting, and (usually) less prone to side effects than regular tetracycline. Tetracycline antibiotics can stain immature teeth and SHOULD NOT BE TAKEN BY CHILDREN, NURSING MOTHERS, OR WOMEN. Tetracyclines can make you more prone to sunburn. Abdominal cramping, nausea, and diarrhea are occasional side effects. Women may experience vaginal yeast infections. Call the doctor at once if you develop hives, itching, shortness of breath, or lightheadedness. Avoid heavy lifting and squatting, etc. very much over the next few days. A note for work is being provided for the next 5 days. Return if the pain worsens or you have any other change in your condition. FOLLOW-UP CARE: If you have been referred to a physician for follow-up care, call the physicians office for an appointment as you were instructed or within the next two days. If you experience worsening or a significant change in your symptoms, notify the physician immediately or return to the Emergency Department at any time for re-evaluation. Prescriptions: Doxycycline Hyclate 100 mg PO BID #14 capsule Forms: Return to Work
[2019-03-11 12:24] LABS: APPEARANCE,URINE CLEAR; BILIRUBIN,URINE NEGATIVE (NEGATIVE); COLOR,URINE YELLOW; GLUCOSE, URINE NEGATIVE (NEGATIVE); KETONES,URINE NEGATIVE (NEGATIVE); LEUKOCYTE ESTERASE,URINE NEGATIVE (NEGATIVE); NITRITE,URINE NEGATIVE (NEGATIVE); PROTEIN,URINE NEGATIVE (NEGATIVE); URINE SPECIFIC GRAVITY 1.012; UROBILINOGEN,URINE NEGATIVE mg/dL (<2.0)
--- NOTE | 2019-03-11 12:52 | RADIOLOGY REPORT (SQ) ---
EXAM DESCRIPTION: U/S SCROTUM W/DOPPLER COMPLETED DATE/TIME: 03/11/2019 12:33 pm REASON FOR STUDY: bed 17 COMPARISON: None. TECHNIQUE: Static and realtime watt scale imaging of the scrotum and testes. Selected color Doppler and spectral images recorded to document blood flow. LIMITATIONS: None. FINDINGS: RIGHT: TESTICLE: Normal size. Normal echotexture. Normal blood flow. No mass. EPIDIDYMIS: Normal. HYDROCELE OR VARICOCELE: No. HERNIA OR EXTRA-TESTICULAR MASS: No. OTHER: No other significant finding. LEFT: TESTICLE: Normal size. Normal echotexture. Normal blood flow. No mass. EPIDIDYMIS: Normal. HYDROCELE OR VARICOCELE: No. HERNIA OR EXTRA-TESTICULAR MASS: No. OTHER: No other significant finding. IMPRESSION: Normal bilateral testicles. Symmetric arterial and venous Doppler flow is present bilat erally. TECHNICAL DOCUMENTATION: JOB ID: [id number] [employer]- All Rights Reserved Reading location - IP/workstation name: [email or web address]
[2019-03-11 13:21] VITALS: BP 136/59
== END 2019-03-11 13:21 | disposition home or self-care (01) ==
LOC: ER 11:22
DX: N50.812 Left testicular pain (principal); R39.11 Hesitancy of micturition
CPT/HCPCS: 76870; 81001; 93976; 99284

== ENCOUNTER 2019-05-05 15:22 | Emergency (ER) | payer SELFPAY ==
[2019-05-05] MEDS ORDERED: NORMAL SALINE 1000 ML 1,000 ML IV ONE ×2 (15:28→16:28)
[2019-05-05] MEDS ORDERED: ONDANSETRON HCL INJ/PF 4 MG/2 ML SDV IV ONE (15:28)
[2019-05-05 15:51] LABS: ABSOLUTE LYMPHOCYTES (AUTO) 0.8 10^3/uL (0.5-4.7); ABSOLUTE NEUT (AUTO) 11.9 10^3/uL (1.7-8.2); BASOPHILS % (AUTO) 0.1 % (0-2); EOSINOPHILS % (AUTO) 0.3 % (0-6); HEMATOCRIT 40.6 % (37.9-51.0); HEMOGLOBIN 13.9 g/dL (13.5-17.0); LYMPHOCYTES % (AUTO) 5.8 % (13-45); MEAN CORPUSCULAR HEMOGLOBIN 30.2 pg (27.0-33.4); MEAN CORPUSCULAR HGB CONC 34.2 g/dL (32.0-36.0); MEAN CORPUSCULAR VOLUME 88 fl (80-97); MONOCYTES % (AUTO) 7.1 % (3-13); PLATELET COUNT 280 10^3/uL (150-450); RED BLOOD COUNT 4.59 10^6/uL (4.35-5.55); RED CELL DISTRIBUTION WIDTH 14.1 % (11.5-14.0); SEGMENTED NEUTROPHILS % (AUTO) 86.7 % (42-78); TOTAL CELLS COUNTED % (AUTO) 100 %; WHITE BLOOD COUNT 13.7 10^3/uL (4.0-10.5)
[2019-05-05 16:09] LABS: ALBUMIN 4.2 g/dL (3.5-5.0); ALKALINE PHOSPHATASE 45 U/L (38-126); ANION GAP 9 (5-19); ASPARTATE AMINO TRANSFERASE 29 U/L (17-59); BILIRUBIN,DIRECT 0.1 mg/dL (0.0-0.4); BILIRUBIN,TOTAL 1.1 mg/dL (0.2-1.3); BLOOD UREA NITROGEN 16 mg/dL (7-20); CALCIUM 9.4 mg/dL (8.4-10.2); CARBON DIOXIDE 26 mmol/L (22-30); CHLORIDE 106 mmol/L (98-107); GLUCOSE 109 mg/dL (75-110); POTASSIUM 4.1 mmol/L (3.6-5.0); TOTAL PROTEIN 6.7 g/dL (6.3-8.2)
[2019-05-05] MEDS ORDERED: KETOROLAC TROMETHAMINE INJ/PF 30 MG/1 ML SDV IV ONE ×2 (16:27→23:22)
--- NOTE | 2019-05-05 17:07 | RADIOLOGY REPORT (SQ) ---
EXAM DESCRIPTION: CT ABD/PELVIS NO ORAL OR IV COMPLETED DATE/TIME: 05/05/2019 4:52 pm REASON FOR STUDY: L flank pain, radiating to testicle COMPARISON: 04/05/2018 TECHNIQUE: CT scan of the abdomen and pelvis performed without intravenous or oral contrast. Images reviewed with lung, soft tissue, and bone windows. Reconstructed coronal and sagittal MPR images revi ewed. All images stored on PACS. All CT scanners at this facility use dose modulation, iterative reconstruction, and/or weight based d osing when appropriate to reduce radiation dose to as low as reasonably achievable (ALARA). [facility]: Dose Right [facility]: CareDose [facility]: Dose Right [facility]: Teradose 4D [facility]: Smart [employer] RADIATION DOSE: CT Rad equipment meets quality standard of care and radiation dose reduction techniq ues were employed. CTDIvol: 5.4 mGy. DLP: 273 mGy-cm.mGy. LIMITATIONS: None. FINDINGS: LOWER CHEST: No significant findings. No nodules or infiltrates. NON-CONTRASTED LIVER, SPLEEN, ADRENALS: Evaluation limited by lack of IV contrast. No identified sign ificant masses. PANCREAS: No masses. No peripancreatic inflammatory changes. GALLBLADDER: No calcified stones. No inflammatory changes to suggest cholecystitis. RIGHT KIDNEY AND URETER: No cysts identified. No solid masses. No calcified stones. No hydronephrosis or hydroureter. LEFT KIDNEY AND URETER: No cysts identified. No solid masses. 6 mm calcified stone in the proximal l eft ureter with moderate hydronephrosis - hydroureter. AORTA AND RETROPERITONEUM: No aneurysm. No retroperitoneal masses or adenopathy. BOWEL AND PERITONEAL CAVITY: No obvious masses or inflammatory changes. No free fluid. APPENDIX: Normal. PELVIS, BLADDER, AND ABDOMINAL WALL:No abnormal masses. No free fluid. Unremarkable bladder. BONES: No acute findings. OTHER: No other significant finding. IMPRESSION: 6 mm calcified stone in the proximal left ureter with moderate hydronephrosis - hydroure ter. TECHNICAL DOCUMENTATION: JOB ID: [id number] Quality ID # [id number]: Final reports with documentation of one or more dose reduction techniques (e.g., Au tomated exposure control, adjustment of the mA and/or kV according to patient size, use of iterative reconstruction technique) 2010 [employer]- All Rights Reserved Reading location - IP/workstation name: [email or web address]
[2019-05-05] MEDS ORDERED: METOCLOPRAMIDE HCL INJ/PF 10 MG/2 ML SDV IV ONE (17:08)
[2019-05-05 18:05] LABS: AMORPHOUS SEDIMENT,URINE 1+ /HPF; APPEARANCE,URINE CLOUDY; BILIRUBIN,URINE NEGATIVE (NEGATIVE); COLOR,URINE YELLOW; GLUCOSE, URINE NEGATIVE (NEGATIVE); KETONES,URINE 20 mg/dL (NEGATIVE); LEUKOCYTE ESTERASE,URINE NEGATIVE (NEGATIVE); NITRITE,URINE NEGATIVE (NEGATIVE); PROTEIN,URINE 30 mg/dL (NEGATIVE); URINE SPECIFIC GRAVITY 1.017; UROBILINOGEN,URINE NEGATIVE mg/dL (<2.0)
[2019-05-05] MEDS ORDERED: FENTANYL CITRATE INJ/PF 100 MCG/2 ML AMPUL IV ONE ×2 (18:09→21:06)
[2019-05-05] MEDS ORDERED: PROMETHAZINE HCL INJ 25 MG/1 ML VIAL IV ONE (18:16)
[2019-05-05] MEDS ORDERED: DIAZEPAM INJ 10 MG/2 ML DISP.SYRIN IV ONE (18:36)
[2019-05-06] MEDS ORDERED: HYDROCODONE/ACETAMINOPHEN 5-325 MG (6 TAB/ER DISP) PO PRN (00:56)
[2019-05-06] MEDS ORDERED: ONDANSETRON ODT 4 MG TAB (6 TAB/ER DISP) PO PRN (00:56)
[2019-05-06 01:17] VITALS: BP 100/54
--- NOTE | 2019-05-06 02:08 | ER Document Report ---
Entered by ANSLEY TAO SCRIBE 05/05/19 1553 Acting as scribe for:NOLVIA TOMLIN DO ED GI/ - General Chief Complaint: Abdominal Pain Stated Complaint: ABDOMINAL PAIN/VOMITING Primary Care Provider: SHERMAN MARTÍNEZ MD [NO LOCAL MD] - Follow up in 3-5 days Mode of Arrival: Ambulatory Information source: Patient Notes: 34-year-old male who presents to the emergency department today with complaints of left-sided flank pain, abdominal pain, and left testicular pain. Patient states all of these symptoms began suddenly about two days ago. Patient has had associated nausea and vomiting. Patient also states it hurts when he urinates. Patient denies any trauma. Patient states he is sexually active but is not concerned for STI. TRAVEL OUTSIDE OF THE [place] IN LAST 30 DAYS: No - Related Data Allergies/Adverse Reactions: No Known Allergies Allergy (Verified 03/03/18 08:41) Past Medical History - General Information source: Patient - Social History Smoking Status: Never Smoker Cigarette use (# per day): No Chew tobacco use (# tins/day): No Frequency of alcohol use: None Drug Abuse: None Lives with: Alone Family History: Reviewed & Not Pertinent, Arthritis, Hypertension Neurological Medical History: Reports: Hx Seizures - from head injury GI Medical History: Reports: Hx Gastroesophageal Reflux Disease Psychiatric Medical History: Reports: Hx Depression Traumatic Medical History: Reports: Hx Traumatic Brain Injury - Immunizations Immunizations up to date: Yes Hx Diphtheria, Pertussis, Tetanus Vaccination: Yes - 2010 Review of Systems - Review of Systems Constitutional: No symptoms reported EENT: No symptoms reported Cardiovascular: No symptoms reported Respiratory: No symptoms reported Gastrointestinal: See HPI, Abdominal pain, Nausea, Vomiting Genitourinary: See HPI, Burning, Dysuria, Flank pain Male Genitourinary: See HPI, Testicular pain Musculoskeletal: No symptoms reported Skin: No symptoms reported Hematologic/Lymphatic: No symptoms reported Neurological/Psychological: No symptoms reported -: Yes All other systems reviewed and negative Physical Exam - Vital signs Vitals: Temp Pulse Resp BP Pulse Ox 97.6 F 97 12 154/109 H 100 05/05/19 15:31 05/05/19 15:31 05/05/19 15:31 05/05/19 15:31 05/05/19 15:31 Interpretation: Normal - General General appearance: Alert In distress: Mild Notes: Appears in pain - HEENT Head: Normocephalic, Atraumatic Eyes: Normal Pupils: PERRL - Respiratory Respiratory status: No respiratory distress Chest status: Nontender Breath sounds: Normal Chest palpation: Normal - Cardiovascular Rhythm: Regular Heart sounds: Normal auscultation Murmur: No - Abdominal Inspection: Normal Distension: No distension Bowel sounds: Normal Tenderness: Nontender Organomegaly: No organomegaly - Genitourinary Inspection: Normal. No: Blood at meatus, Penile discharge Tenderness: Testicle tender - Left. No: Lesions Cremasteric reflex: Normal. No: Right reflex absent, Left reflex absent Scrotum: Normal. No: Swelling, Redness, Hot to touch - Back Back: Normal, CVA tenderness - L - Extremities General upper extremity: Normal inspection, Nontender, Normal color, Normal ROM, Normal temperature General lower extremity: Normal inspection, Nontender, Normal color, Normal ROM, Normal temperature, Normal weight bearing. No: Arti's sign - Neurological Neuro grossly intact: Yes Cognition: Normal Orientation: AAOx4 [place] Coma Scale Eye Opening: Spontaneous [place] Coma Scale Verbal: Oriented Juan [place] Coma Scale Motor: Obeys Commands [place] Coma Scale Total: 15 Speech: Normal Motor strength normal: LUE, RUE, LLE, RLE Sensory: Normal - Psychological Associated symptoms: Normal affect, Normal mood - Skin Skin Temperature: Warm Skin Moisture: Dry Skin Color: Normal Course - Re-evaluation Re-evalutation: 05/05/19 23:20 Patient is a 34-year-old male who comes in with flank and testicular pain. 6 mm proximal stone with hydroureter and hydronephrosis. Patient given multiple rounds of pain medication over the last 8 hours and is still having pain and some nausea. 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 Called this number back who is Dr. Catalan, urology at [facility] who states to give 30 mg of Toradol and call him back if pain is still not controlled. 05/06/19 00:58 Patient now feeling better and is comfortable going home. He is instructed to follow-up with urology. Return if any worsening or concerning symptoms. No evidence for infection. Tolerating p.o. without difficulty. Understands and agrees with plan. Grateful for care. - Vital Signs Vital signs: Temp Pulse Resp BP Pulse Ox 99.0 F 50 L 16 100/54 L 97 05/06/19 01:16 05/06/19 01:16 05/06/19 01:16 05/06/19 01:16 05/06/19 01:16 - Laboratory Result Diagrams: 05/05/19 15:38 05/05/19 15:38 Laboratory results interpreted by me: 05/05/19 05/05/19 05/05/19 15:38 15:38 17:47 WBC 13.7 H RDW 14.1 H Lymph % (Auto) 5.8 L Absolute Neuts (auto) 11.9 H Seg Neutrophils % 86.7 H Creatinine 1.26 H Urine Protein 30 H Urine Ketones 20 H Urine Blood MODERATE H - Diagnostic Test Radiology reviewed: Reports reviewed Discharge - Discharge Clinical Impression: Ureteral stone with hydronephrosis Condition: Stable Disposition: HOME, SELF-CARE Instructions: Kidney Stone ([facility]) Prescriptions: Ketorolac Tromethamine [Toradol 10 mg Tablet] 10 mg PO Q8HP PRN #20 tablet PRN Reason: Oxycodone HCl/Acetaminophen [Percocet 5-325 mg Tablet] 1 - 2 tab PO Q4H PRN #15 tablet PRN Reason: Metoclopramide HCl [Reglan 10 mg Tablet] 1 - 2 tab PO ASDIR PRN #25 tablet PRN Reason: Referrals: SHERMAN MARTÍNEZ MD [NO LOCAL MD] - Follow up in 3-5 days I personally performed the services described in the documentation, reviewed and edited the documentation which was dictated to the scribe in my presence, and it accurately records my words and actions.
== END 2019-05-06 01:22 | disposition home or self-care (01) ==
LOC: ER 15:22
DX: N13.2 Hydronephrosis with renal and ureteral calculous obstruction (principal); N50.812 Left testicular pain; R10.9 Unspecified abdominal pain; R30.0 Dysuria; R11.2 Nausea with vomiting, unspecified; Z87.19 Personal history of other diseases of the digestive system
CPT/HCPCS: 36415; 83690; 85025; 80053; 81001; 74176; J3010; J1885; J2765; J2550; J2405; J7030; 96361; 96374; 96375; 96376; 99284

== ENCOUNTER 2019-05-14 07:03 | Emergency (ER) | payer SELFPAY ==
[2019-05-14] MEDS ORDERED: NORMAL SALINE 1000 ML 1,000 ML IV ONE (08:00)
[2019-05-14] MEDS ORDERED: KETOROLAC TROMETHAMINE INJ/PF 30 MG/1 ML SDV IV ONE (08:01)
[2019-05-14] MEDS ORDERED: ONDANSETRON HCL INJ/PF 4 MG/2 ML SDV IV ONE (08:01)
[2019-05-14 08:33] LABS: ABSOLUTE EOSINOPHILS # (AUTO) 0.1 10^3/uL (0.0-0.6); ABSOLUTE LYMPHOCYTES (AUTO) 1.4 10^3/uL (0.5-4.7); ABSOLUTE MONOCYTES (AUTO) 0.6 10^3/uL (0.1-1.4); ABSOLUTE NEUT (AUTO) 5.3 10^3/uL (1.7-8.2); BASOPHILS % (AUTO) 0.3 % (0-2); EOSINOPHILS % (AUTO) 1.2 % (0-6); HEMATOCRIT 39.6 % (37.9-51.0); HEMOGLOBIN 13.7 g/dL (13.5-17.0); LYMPHOCYTES % (AUTO) 18.7 % (13-45); MEAN CORPUSCULAR HEMOGLOBIN 30.3 pg (27.0-33.4); MEAN CORPUSCULAR HGB CONC 34.5 g/dL (32.0-36.0); MEAN CORPUSCULAR VOLUME 88 fl (80-97); PLATELET COUNT 313 10^3/uL (150-450); RED BLOOD COUNT 4.52 10^6/uL (4.35-5.55); RED CELL DISTRIBUTION WIDTH 13.4 % (11.5-14.0); SEGMENTED NEUTROPHILS % (AUTO) 71.8 % (42-78); TOTAL CELLS COUNTED % (AUTO) 100 %; WHITE BLOOD COUNT 7.4 10^3/uL (4.0-10.5)
[2019-05-14 08:53] LABS: AMORPHOUS SEDIMENT,URINE TRACE /HPF; APPEARANCE,URINE SLIGHTLY-CLOUDY; BILIRUBIN,URINE NEGATIVE (NEGATIVE); COLOR,URINE YELLOW; GLUCOSE, URINE NEGATIVE (NEGATIVE); KETONES,URINE NEGATIVE (NEGATIVE); LEUKOCYTE ESTERASE,URINE MODERATE (NEGATIVE); NITRITE,URINE NEGATIVE (NEGATIVE); PROTEIN,URINE 30 mg/dL (NEGATIVE); URINE SPECIFIC GRAVITY 1.014; UROBILINOGEN,URINE NEGATIVE mg/dL (<2.0)
[2019-05-14 08:58] LABS: ALBUMIN 4.3 g/dL (3.5-5.0); ALKALINE PHOSPHATASE 52 U/L (38-126); ANION GAP 13 (5-19); ASPARTATE AMINO TRANSFERASE 25 U/L (17-59); BILIRUBIN,DIRECT 0.1 mg/dL (0.0-0.4); BILIRUBIN,TOTAL 0.6 mg/dL (0.2-1.3); BLOOD UREA NITROGEN 20 mg/dL (7-20); CALCIUM 9.8 mg/dL (8.4-10.2); CARBON DIOXIDE 27 mmol/L (22-30); CHLORIDE 101 mmol/L (98-107); GLUCOSE 102 mg/dL (75-110); POTASSIUM 4.6 mmol/L (3.6-5.0); TOTAL PROTEIN 7.1 g/dL (6.3-8.2)
--- NOTE | 2019-05-14 11:37 | ER Document Report ---
ED General - General Chief Complaint: Post Surgical Pain Stated Complaint: POST OP ISSUES Time Seen by Provider: 05/14/19 07:49 Mode of Arrival: Ambulatory Information source: Patient Notes: 34-year-old male presents to the emergency department with complaint of vomiting for the past 2 days with some dysuria. He had a seizure to remove a kidney stone last week that his symptoms have gone since that procedure. Denies flank pain but complains of pain in the penile urethra. He also notes dysuria. He has had multiple episodes of vomiting and complains of nausea at this time. He denies fever and has been taking Bactrim since his procedure. TRAVEL OUTSIDE OF THE [place] 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 HENT: Negative for sore throat. Eyes: Negative for visual changes. Cardiovascular: Negative for chest pain. Respiratory: Negative for shortness of breath. Gastrointestinal: + nausea and vomiting, negative for abdominal pain Genitourinary: +dysuria. Musculoskeletal: Negative for back pain. Skin: Negative for rash. Neurological: Negative for headaches, weakness or numbness. 10 point ROS negative except as marked above and in HPI. Physical Exam - Vital signs Vitals: Temp Pulse Resp BP Pulse Ox 97.9 F 73 14 119/79 97 05/14/19 07:16 05/14/19 07:16 05/14/19 07:16 05/14/19 07:16 05/14/19 07:16 - Notes Notes: PHYSICAL EXAMINATION: GENERAL: Ill appearing 34-year-old male in mild distress secondary to nausea and vomiting episodes. HEAD: Atraumatic, normocephalic. EYES: sclera anicteric, conjunctiva are normal. ENT: Moist mucous membranes. NECK: Normal range of motion LUNGS: Normal work of breathing HEART: 2+ radial pulses bilaterally EXTREMITIES: no pitting or edema. No cyanosis. NEUROLOGICAL: No focal neurological deficits. Moves all extremities spontaneously and on command. Back: No CVA tenderness. SKIN: Warm, Dry, normal turgor, no rashes or lesions noted. Course - Vital Signs Vital signs: Temp Pulse Resp BP Pulse Ox 98.2 F 73 9 L 128/101 H 100 05/14/19 12:00 05/14/19 07:16 05/14/19 12:01 05/14/19 12:00 05/14/19 12:01 - Laboratory Result Diagrams: 05/14/19 08:00 05/14/19 08:00 Laboratory results interpreted by me: 05/14/19 07:45 Urine Protein 30 H Urine Blood LARGE H Ur Leukocyte Esterase MODERATE H 05/14/19 13:12 I have reviewed laboratory data and used this information and the treatment decisions regarding the patient. Discharge - Discharge Clinical Impression: Urethritis Urinary tract infection Qualifiers: Urinary tract infection type: acute cystitis Hematuria presence: with hematuria Qualified Code(s): N30.01 - Acute cystitis with hematuria Condition: Good Disposition: HOME, SELF-CARE Instructions: Cephalexin ([facility]), Urinary Tract Infection ([facility]) Additional Instructions: Follow-up with urology. Prescriptions: Cephalexin Monohydrate [Keflex 500 mg Capsule] 500 mg PO Q8 10 Days capsule
[2019-05-14] MEDS ORDERED: CEFTRIAXONE INJ 1000 MG VIAL IV ONE (11:40)
[2019-05-14 13:52] VITALS: BP 130/98
== END 2019-05-14 14:22 | disposition home or self-care (01) ==
LOC: ER 07:03
DX: N30.01 Acute cystitis with hematuria (principal); N34.2 Other urethritis; R30.0 Dysuria; R11.2 Nausea with vomiting, unspecified; Z98.890 Other specified postprocedural states; Z87.442 Personal history of urinary calculi
CPT/HCPCS: 36415; 85025; 80053; 81001; J1885; J0696; J2405; J7030; 96361; 96365; 96375; 99283

== ENCOUNTER 2020-01-15 13:06 | Emergency (ER) | payer SELFPAY ==
[2020-01-15 14:01] VITALS: BP 133/82
[2020-01-15] MEDS ORDERED: NORMAL SALINE 1000 ML 1,000 ML IV ONE (14:03)
[2020-01-15] MEDS ORDERED: ONDANSETRON HCL INJ/PF 4 MG/2 ML SDV IV ONE (14:03)
[2020-01-15 14:41] LABS: ABSOLUTE LYMPHOCYTES (AUTO) 0.5 10^3/uL (0.5-4.7); ABSOLUTE MONOCYTES (AUTO) 0.4 10^3/uL (0.1-1.4); ABSOLUTE NEUT (AUTO) 5.5 10^3/uL (1.7-8.2); BASOPHILS % (AUTO) 0.6 % (0-2); EOSINOPHILS % (AUTO) 0.1 % (0-6); HEMATOCRIT 40.3 % (37.9-51.0); LYMPHOCYTES % (AUTO) 8.5 % (13-45); MEAN CORPUSCULAR HEMOGLOBIN 30.5 pg (27.0-33.4); MEAN CORPUSCULAR HGB CONC 34.8 g/dL (32.0-36.0); MEAN CORPUSCULAR VOLUME 88 fl (80-97); MONOCYTES % (AUTO) 5.4 % (3-13); PLATELET COUNT 266 10^3/uL (150-450); RED BLOOD COUNT 4.59 10^6/uL (4.35-5.55); RED CELL DISTRIBUTION WIDTH 13.6 % (11.5-14.0); SEGMENTED NEUTROPHILS % (AUTO) 85.4 % (42-78); TOTAL CELLS COUNTED % (AUTO) 100 %; WHITE BLOOD COUNT 6.5 10^3/uL (4.0-10.5)
[2020-01-15 14:57] LABS: ALBUMIN 4.8 g/dL (3.5-5.0); ALKALINE PHOSPHATASE 61 U/L (38-126); ANION GAP 9 (5-19); ASPARTATE AMINO TRANSFERASE 25 U/L (17-59); BILIRUBIN,TOTAL 1.4 mg/dL (0.2-1.3); BLOOD UREA NITROGEN 21 mg/dL (7-20); CALCIUM 9.7 mg/dL (8.4-10.2); CARBON DIOXIDE 24 mmol/L (22-30); CHLORIDE 102 mmol/L (98-107); GLUCOSE 111 mg/dL (75-110); POTASSIUM 4.2 mmol/L (3.6-5.0); TOTAL PROTEIN 7.9 g/dL (6.3-8.2)
[2020-01-15] MEDS ORDERED: KETOROLAC TROMETHAMINE INJ/PF 30 MG/1 ML SDV IV ONE (16:01)
[2020-01-15] MEDS ORDERED: METOCLOPRAMIDE HCL INJ/PF 10 MG/2 ML SDV IV ONE (16:01)
--- NOTE | 2020-01-15 16:03 | ER Document Report ---
ED GI/ - General Chief Complaint: Abdominal Pain Stated Complaint: NAUSEA,VOMITING Time Seen by Provider: 01/15/20 14:42 Mode of Arrival: Ambulatory Information source: Patient Notes: 34-year-old male with no previous medical problems presents to the emergency room complaining of abdominal cramping with nausea vomiting and diarrhea that started earlier today. States he has had 5-6 episodes of diarrhea. Denies any recent travel. Denies any COVID-19 exposure. Denies any recent antibiotics. Denies any bad food. States no one else at home is ill. Did not take any medications for his symptoms. Also complains of dysuria but denies any penile discharge. States is unable to tolerate anything p.o. TRAVEL OUTSIDE OF THE [place] 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 Renal/ Medical History: Denies: Hx Peritoneal Dialysis GI Medical History: Reports: Hx Gastroesophageal Reflux Disease Psychiatric Medical History: Reports: Hx Depression Traumatic Medical History: Reports: Hx Traumatic Brain Injury - Immunizations Immunizations up to date: Yes Hx Diphtheria, Pertussis, Tetanus Vaccination: Yes - 2010 Review of Systems - Review of Systems Constitutional: No symptoms reported Cardiovascular: No symptoms reported Respiratory: No symptoms reported Gastrointestinal: Abdominal pain, Diarrhea, Nausea, Vomiting Genitourinary: Dysuria Male Genitourinary: No symptoms reported Skin: No symptoms reported Neurological/Psychological: No symptoms reported -: Yes All other systems reviewed and negative Physical Exam - Vital signs Vitals: Temp Pulse Resp BP Pulse Ox 98.7 F 58 L 16 133/82 H 100 01/15/20 13:40 01/15/20 13:40 01/15/20 13:40 01/15/20 13:40 01/15/20 13:40 - Notes Notes: VITAL SIGNS: Within normal limits. GENERAL: Mild acute distress, non-toxic appearance. HEAD: Normal with no signs of head trauma. EYES: PERRLA, EOMI, conjunctiva normal, no discharge. EARS: Hearing grossly intact. NOSE: Normal. THROAT: Oropharynx is normal. NECK: Normal range of motion, no tenderness, supple, no lymphadenopathy, No adenopathy, no JVD. CHEST: Clear breath sounds bilaterally. No wheezes, rales, or rhonchi. CARDIAC: Regular rate and rhythm. S1 and S2, without murmurs, gallops, or rubs. VASCULAR: No Edema. Peripheral pulses normal and equal in all extremities. ABDOMEN: Normal and soft with no tenderness, no masses or pulsatile masses. No organomegaly. Positive bowel sounds x4. No CVA tenderness noted bilaterally. GASTROINTESTINAL: Bowel sounds normal GENITOURINARY: Normal, No tenderness LYMPATHTIC: No lymphadenopathy noted. MUSCULOSKELETAL: Good range of motion of all major joints. Extremities without clubbing, cyanosis or edema. NEUROLOGICAL: Alert and oriented x 3. No focal sensory or strength deficits. Speech normal. Follows commands appropriately. PSYCHIATRIC: Normal Affect, judgement and mood. SKIN: Normal appearance with no rashes or lesions. Course - Re-evaluation Re-evalutation: 01/15/20 18:01 Went to evaluate patient to discuss lab values. Patient was not in his room. Unable to locate the patient. Assumed that the patient has eloped 01/15/20 19:00 - Vital Signs Vital signs: Temp Pulse Resp BP Pulse Ox 98.7 F 58 L 16 133/82 H 100 01/15/20 13:40 01/15/20 13:40 01/15/20 13:40 01/15/20 13:40 01/15/20 13:40 - Laboratory Result Diagrams: 01/15/20 14:24 01/15/20 14:24 Laboratory results interpreted by me: 01/15/20 01/15/20 01/15/20 14:24 14:24 16:40 Lymph % (Auto) 8.5 L Seg Neutrophils % 85.4 H Sodium 135.3 L BUN 21 H Glucose 111 H Total Bilirubin 1.4 H Urine Protein 30 H Urine Ketones 80 H Discharge - Discharge Clinical Impression: Nausea & vomiting Qualifiers: Vomiting type: unspecified Vomiting Intractability: non-intractable Qualified Code(s): R11.2 - Nausea with vomiting, unspecified Condition: Stable Disposition: ELOPED Instructions: Vomiting ([facility]), Diarrhea, Nonspecific ([facility])
[2020-01-15 17:05] LABS: APPEARANCE,URINE SLIGHTLY-CLOUDY; BILIRUBIN,URINE NEGATIVE (NEGATIVE); COLOR,URINE YELLOW; GLUCOSE, URINE NEGATIVE (NEGATIVE); KETONES,URINE 80 mg/dL (NEGATIVE); LEUKOCYTE ESTERASE,URINE NEGATIVE (NEGATIVE); NITRITE,URINE NEGATIVE (NEGATIVE); PROTEIN,URINE 30 mg/dL (NEGATIVE); URINE SPECIFIC GRAVITY 1.031; UROBILINOGEN,URINE NEGATIVE mg/dL (<2.0)
[2020-01-15 18:33] LABS: CHLAM PCR NOT DETECTED (NOT DETECT)
== END 2020-01-15 14:54 | disposition left against medical advice (07) ==
LOC: ER 13:06
DX: R11.2 Nausea with vomiting, unspecified (principal); R10.9 Unspecified abdominal pain; R19.7 Diarrhea, unspecified; R30.0 Dysuria; Z53.20 Procedure and treatment not carried out because of patient's decision for unspecified reasons
CPT/HCPCS: 99281; 96361; 96374; 96375; 36415; 85025; 80053; 81001; 87491; 87591; J1885; J2765; J2405; J7030